=== PATIENT | female | born 1955 | race Caucasian/White ===

== ENCOUNTER 2022-02-14 15:07 | Inpatient (IN) ==
[2022-02-14 16:39] LABS: Bilirubin,Urine Negative (Negative); Blood,Urine Negative (Negative); Clarity,Urine Clear (Clear); Color,Urine Light-Yellow (Yellow); Glucose,Urine (UA) 200 mg/dL (Normal); Hyaline Casts,Urine Few per lpf (None Seen); Ketones,Urine Negative (Negative); Leukocyte Esterase,Urine Moderate (Negative); Nitrite,Urine Negative (Negative); PH,Urine 6.5 pH Units (5.0-8.0); Protein,Urine Negative (Neg-Trace); RBC,Urine 0-3 per hpf (0-3); Specific Gravity,Urine 1.016 (1.010-1.025); Squamous Epithelial Cell,Urine Few per hpf (None-Few); Transitional Epi Cells,Urine Few per hpf (None-Few); Urobilinogen,Urine Normal (Normal)
[2022-02-14 17:05] LABS: Basophils # 0.1 K/mcL (0.0-0.2); Basophils % 0.5 %; Eosinophils # 0.1 K/mcL (0.0-0.6); Eosinophils % 0.8 %; Hematocrit 39.5 % (35.3-44.9); Hemoglobin 12.6 g/dL (11.5-15.4); Immature Granulocytes % 0.5 % (0-4); Lymphocytes # 2.1 K/mcL (0.6-4.6); Lymphocytes % 16.1 %; Mean Corpuscular HGB Conc 31.9 g/dL (31.6-35.5); Mean Corpuscular Hemoglobin 27.5 pg (28.0-33.3); Mean Corpuscular Volume 86.2 fL (83.0-100.0); Mean Platelet Volume 10.9 fL (9.4-12.4); Monocytes # 1.3 K/mcL (0.0-1.3); Monocytes % 9.9 %; Neutrophils # 9.4 K/mcL (1.6-8.9); Platelet Count 175 K/mcL (140-400); Red Blood Count 4.58 M/mcL (3.82-4.97); Red Cell Distribution Width 14.6 % (11.5-14.5); Segmented Neutrophils % 72.2 %
[2022-02-14 17:25] LABS: Potassium 4.3 mEq/L (3.5-5.1)
[2022-02-14] MEDS ORDERED: Isovue-370 500 ML BOTTLE IVP ONE (18:45)
[2022-02-14] MEDS ORDERED: 0.9 % Sodium Chloride 2,000 ML IV ONE (18:46)
[2022-02-14] MEDS ORDERED: Morphine Sulfate 2 MG/ML SYRINGE IVP ONE (18:57)
[2022-02-14] MEDS ORDERED: Ondansetron 4 MG/2 ML VIAL IVP PRN (18:57)
[2022-02-14] MEDS ORDERED: Pantoprazole 40 MG VIAL IVP ONE (18:57)
[2022-02-14] MEDS ORDERED: Piperacillin/Tazobactam 3.375 GM in 0.9 % Sodium Chloride Mini Bag 100 ML IVPB ONE (18:58)
[2022-02-14 19:32] LABS: Albumin/Globulin Ratio 1.3 (1.1-2.2); Bilirubin,Indirect 0.6 mg/dL (0.0-1.0); Bilirubin,Total 0.6 mg/dL (0.3-1.0); Globulin 3.1 g/dL (2.4-3.5); Total Protein 7.1 g/dL (6.4-8.9)
[2022-02-14] MEDS ORDERED: Naloxone 0.4 MG/ML INJ IVP PRN (21:23)
[2022-02-14] MEDS ORDERED: Ondansetron ODT 4 MG TAB.RAPDIS SL PRN (21:23)
[2022-02-14 21:44] LABS: Influenza A PCR Negative (Negative); Influenza B PCR Negative (Negative); Resp. Syncytial Virus PCR Negative (Negative); SARS-CoV-2 by PCR (In House) Negative (Negative)
[2022-02-14] MEDS ORDERED: Dextrose 4 GM Chewable Tablets PO PRN ×2 (22:59)
[2022-02-14] MEDS ORDERED: D5% in Water 1,000 ML IVC PRN (22:59)
[2022-02-14] MEDS ORDERED: *HR* Dextrose 50 % in Water (Syg) 50 ML SYRINGE IVP PRN (22:59)
[2022-02-14] MEDS: 0.9 % Sodium Chloride 1,000 ML IVC SCH (23:22)
[2022-02-14] MEDS: Insulin LISPRO 300 UNITS/3 ML VIAL SUBQ SCH (23:31)
[2022-02-15] MEDS: Piperacillin/Tazobactam 3.375 GM in 0.9 % Sodium Chloride Mini Bag 100 ML IVPB SCH ×2 (03:40→13:13)
[2022-02-15] MEDS: Insulin LISPRO 300 UNITS/3 ML VIAL SUBQ SCH ×3 (05:00→17:15)
[2022-02-15 05:25] LABS: Basophils % 0.5 %; Eosinophils # 0.1 K/mcL (0.0-0.6); Hematocrit 32.9 % (35.3-44.9); Immature Granulocytes % 0.3 % (0-4); Lymphocytes # 1.6 K/mcL (0.6-4.6); Lymphocytes % 24.6 %; Mean Corpuscular HGB Conc 33.4 g/dL (31.6-35.5); Mean Corpuscular Volume 83.7 fL (83.0-100.0); Mean Platelet Volume 9.9 fL (9.4-12.4); Monocytes # 0.9 K/mcL (0.0-1.3); Neutrophils # 3.8 K/mcL (1.6-8.9); Platelet Count 177 K/mcL (140-400); Red Blood Count 3.93 M/mcL (3.82-4.97); Red Cell Distribution Width 14.4 % (11.5-14.5); Segmented Neutrophils % 58.6 %; White Blood Count 6.5 K/mcL (4.3-11.1)
[2022-02-15 05:32] LABS: INR 1.3; Prothrombin Time 14.4 Seconds (9.4-12.1)
[2022-02-15 05:35] LABS: Activated Partial Thrombo Time 26.7 Seconds (26.0-36.0)
[2022-02-15 05:53] LABS: Calcium 8.2 mg/dL (8.6-10.3); Magnesium 1.7 mg/dL (1.6-2.6); Phosphorous 3.3 mg/dL (2.7-4.5); Potassium 4.2 mEq/L (3.5-5.1)
[2022-02-15] MEDS ORDERED: Pantoprazole 40 MG VIAL IVP SCH (06:00)
[2022-02-15] MEDS: 0.9 % Sodium Chloride 1,000 ML IVC SCH ×2 (07:55→11:00)
[2022-02-15] MEDS ORDERED: tiZANidine 4 MG TABLET PO PRN (14:03)
[2022-02-15] MEDS: Ondansetron ODT 4 MG TAB.RAPDIS SL PRN ×2 (14:27→18:20)
[2022-02-15] MEDS ORDERED: Prochlorperazine 10 MG/2 ML VIAL IVP PRN (16:19)
[2022-02-15] MEDS: *HR* Heparin 5,000 UNIT/ML VIAL SQ SCH (17:15)
[2022-02-15] MEDS: traZODone 50 MG TABLET PO SCH (20:25)
[2022-02-16] MEDS: Piperacillin/Tazobactam 3.375 GM in 0.9 % Sodium Chloride Mini Bag 100 ML IVPB SCH ×4 (00:27→20:18)
[2022-02-16] MEDS: 0.9 % Sodium Chloride 1,000 ML IVC SCH ×2 (00:31→13:12)
[2022-02-16] MEDS: Insulin LISPRO 300 UNITS/3 ML VIAL SUBQ SCH ×4 (01:35→17:30)
[2022-02-16] MEDS: *HR* Heparin 5,000 UNIT/ML VIAL SQ SCH ×2 (06:04→17:23)
[2022-02-16 06:28] LABS: Hematocrit 29.9 % (35.3-44.9); Hemoglobin 9.8 g/dL (11.5-15.4); Mean Corpuscular HGB Conc 32.8 g/dL (31.6-35.5); Mean Corpuscular Hemoglobin 27.2 pg (28.0-33.3); Mean Corpuscular Volume 83.1 fL (83.0-100.0); Mean Platelet Volume 10.7 fL (9.4-12.4); Platelet Count 166 K/mcL (140-400); Red Cell Distribution Width 14.2 % (11.5-14.5); White Blood Count 6.4 K/mcL (4.3-11.1)
[2022-02-16 06:42] LABS: BUN/Creatinine Ratio 12 (6-26); Blood Urea Nitrogen 12 mg/dL (8-23); Carbon Dioxide 24 mEq/L (23-29); Chloride 105 mEq/L (98-107); Glucose 85 mg/dL (70-105); Osmolality,Calculated 283 (280-300); Potassium 4.1 mEq/L (3.5-5.1); Sodium 137 mEq/L (136-145); eGFR For African Americans > 60 (> 60); eGFR For Non-African Americans 55 (> 60)
[2022-02-16] MEDS: hydroCHLOROthiazide 25 MG TABLET PO SCH (09:35)
[2022-02-16] MEDS: traZODone 50 MG TABLET PO SCH (20:18)
[2022-02-16] MEDS: Ondansetron ODT 4 MG TAB.RAPDIS SL PRN (23:02)
[2022-02-17] MEDS: Insulin LISPRO 300 UNITS/3 ML VIAL SUBQ SCH ×4 (00:09→17:41)
[2022-02-17] MEDS: 0.9 % Sodium Chloride 1,000 ML IVC SCH ×2 (02:33→16:45)
[2022-02-17] MEDS: Piperacillin/Tazobactam 3.375 GM in 0.9 % Sodium Chloride Mini Bag 100 ML IVPB SCH ×3 (04:24→20:11)
[2022-02-17] MEDS: *HR* Heparin 5,000 UNIT/ML VIAL SQ SCH ×2 (04:29→16:45)
[2022-02-17] MEDS: hydroCHLOROthiazide 25 MG TABLET PO SCH (08:45)
[2022-02-17] MEDS: Neosporin OINT 15 GM TUBE TP SCH ×2 (09:21→23:26)
[2022-02-17] MEDS: Ondansetron ODT 4 MG TAB.RAPDIS SL PRN (09:21)
[2022-02-17] MEDS: traZODone 50 MG TABLET PO SCH (20:16)
[2022-02-18] MEDS: Piperacillin/Tazobactam 3.375 GM in 0.9 % Sodium Chloride Mini Bag 100 ML IVPB SCH (05:19)
[2022-02-18] MEDS: 0.9 % Sodium Chloride 1,000 ML IVC SCH (05:23)
[2022-02-18] MEDS: *HR* Heparin 5,000 UNIT/ML VIAL SQ SCH (05:23)
[2022-02-18] MEDS ORDERED: Isovue-370 500 ML BOTTLE PO ONE (05:48)
[2022-02-18 07:23] VITALS: BP 187/76; PULSE 78; TEMP 97.6; O2SAT 98
[2022-02-18] MEDS ORDERED: Insulin LISPRO 300 UNITS/3 ML VIAL SUBQ SCH ×2 (07:30→21:00)
[2022-02-18] MEDS: Ondansetron ODT 4 MG TAB.RAPDIS SL PRN (07:52)
[2022-02-18] MEDS: hydroCHLOROthiazide 25 MG TABLET PO SCH (09:11)
[2022-02-18] MEDS: Neosporin OINT 15 GM TUBE TP SCH (09:13)
== END 2022-02-18 11:39 | disposition home or self-care (01) | DRG 391 ==
LOC: EMEROOARM 15:07 → 2NENU 15:07 → SUATTDRO 21:02 → 2NENU 21:58
PROVIDERS: ADMIT Family Medicine; ATTEND Family Medicine